=== PATIENT | male | born 1985 | race Caucasian/White ===

== ENCOUNTER → 2020-02-18 16:13 | Outpatient (BNVA) | payer SELFPAY | PROVIDERS: Visit Provider Nurse Practitioner Family | DX: J32.9 Chronic sinusitis, unspecified (principal); B37.0 Candidal stomatitis; I82.B12 Acute embolism and thrombosis of left subclavian vein; Z68.23 Body mass index [BMI] 23.0-23.9, adult; Z71.89 Other specified counseling | CPT/HCPCS: 87071; 87880 ==

== ENCOUNTER → 2020-05-22 12:46 | Outpatient (BNVA) | payer SELFPAY | PROVIDERS: Visit Provider Family Medicine | DX: M25.512 Pain in left shoulder (principal) | CPT/HCPCS: 73030 ==

== ENCOUNTER 2020-09-14 14:06 | Outpatient (CLI) | payer SELFPAY ==
--- NOTE | 2020-09-14 14:17 | USCV_ITS ---
Alverto Evans Age: 35 Gender: M : 1985 Exam Date: 09/14/2020 14:59 Ordering Phys: Beverly Allen MD Technologist: Shari Vizcarra [place] [facility] [place]ication: H/O LT SUBCLAV STENT HISTORY: Upper extremity swelling. Upper extremity pain. PROCEDURES: Venous duplex imaging was performed in only the left upper extremity. The following venous structures were evaluated: internal jugular vein, subclavian vein, axillary vein, and brachial veins. FINDINGS: CHRONIC DVT SEEN IN LT IJV, ALL OTHER VEINS PATENT CONCLUSIONS Chronic DVT Left Internal jugular vein. Left subclavian vein is patent. Remainder of LUE veins are patent Wesley Bauer MD (Electronically Signed) Final Date: 14 September 2020 16:46 S
--- NOTE | 2020-09-14 14:17 | USCV_ITS ---
EvansAlverto Age: 35 Gender: M : 1985 Exam Date: 09/14/2020 14:46 Ordering Phys: Beverly Allen MD Technologist: Shari Vizcarra [place] [facility] [place]ication: PAIN AND SWELLING Risk Factors: Previous Vascular Surgery: Right Brachial BP: / Left Brachial BP: / Right Left Velocity (cm/s) Spectral Plaque Velocity (cm/s) Spectral Plaque Syst/Diast Broadening Syst/Diast Broadening 132.30/23.20 Prox CCA 126.20/ 21.70 106.80/21.40 Mid CCA 98.60 / 23.70 90.60/ 26.50 Distal CCA 65.40 / 20.20 68.00/ 20.60 Prox ICA 62.90 / 19.40 66.00/ 25.00 Mid ICA 61.40 / 23.30 62.50/ 25.70 Distal ICA 69.10 / 31.10 87.10 ECA 69.10 0.51 ICA/CCA 0.55 Antegrade Vertebral Antegrade 28.50/ 6.90 cm/s 57.10/ 20.80 cm/s Tri Subclavian Tri 113.4 112.8 0 0 CONCLUSIONS Right ICA stenosis <50%. Left ICA stenosis <50%. Normal antegrade Doppler flow noted in the right vertebral artery. Normal antegrade Doppler flow noted in the left vertebral artery. Wesley Bauer MD (Electronically Signed) Final Date: 14 September 2020 16:49 S
== END 2020-09-14 14:07 | disposition home or self-care (01) ==
PROVIDERS: PCP Family Medicine; Visit Provider Family Medicine
DX: Z86.718 Personal history of other venous thrombosis and embolism (principal); I82.B12 Acute embolism and thrombosis of left subclavian vein; M79.89 Other specified soft tissue disorders; I82.C22 Chronic embolism and thrombosis of left internal jugular vein; I65.23 Occlusion and stenosis of bilateral carotid arteries
CPT/HCPCS: 93880; 93971

== ENCOUNTER 2020-09-16 15:09 | Emergency (ER) | payer SELFPAY ==
[2020-09-16 15:40] VITALS: BP 134/88; PULSE 84; RESP 16; TEMP 36.6; O2SAT 97; BMI 25.0
[2020-09-16 17:38] VITALS: BP 125/92; PULSE 61; RESP 16; O2SAT 98
--- NOTE | 2020-09-16 18:10 | W.ED.EXTPRO ---
HPI - Extremity Problem General: Chief complaint: Extremity Problem,Nontraumatic Stated complaint: blood clot juggular, left arm *pt suspects Time Seen by Provider: 09/16/20 17:56 History of Present Illness: HPI Narrative: Patient is a 35-year-old male who comes to the ED with left arm pain and muscle cramps. Patient was seen at his PCP for same complaint on September 14 and he was sent to radiology to check for blood clot on left arm and ultrasound found an acute embolism and thrombosis of left subclavian vein. Patient has a history of blood clots in his been taking Eliquis for the past couple years. Primary care doctor sent in for her referral for patient to be seen by vascular surgery in [place]. Patient also has a vascular doctor he sees in [place] that he is communicating with. Currently they are getting something set up to address left arm clot. He comes today because he is having pain and muscle spasms in his left arm. He said he has had this once before when he had a clot and he was put on a muscle relaxer and it helps. Patient says his swelling in his left arm is went down considerably over the past 2 days. Denies any acute shortness of breath, chest pain, hemoptysis or any other symptoms. Associated symptoms: Deny chest pain, fever(s) or rash Review of Systems Const: Denies: fever(s), chills or fatigue Eyes: Denies: change in vision or eye discomfort ENMT: Denies: throat pain, odynophagia, nasal discharge or nasal congestion Card: Denies: chest pain, palpitations, edema, swelling of feet/ankles, dyspnea on exertion or orthopnea Resp: Denies: dyspnea, productive cough or non-productive cough GI: Denies: abdominal pain, nausea, vomiting, diarrhea, constipation or hematochezia : Denies: flank pain, difficulty urinating, dysuria or hematuria Musc: Reports: extremity pain (left arm pain); Denies: neck pain, back pain or extremity swelling Skin/Breast: Denies: rash or new lesions Neuro: Denies: headache(s), numbness in extremities or weakness in extremities PFS ED PFSH: Medical History History of DVT of lower extremity Vascular thoracic outlet syndrome Surgical History History of thoracic surgery Social History Smoking and tobacco status: never smoked Second hand smoke exposure: No Smoking risk assessment/counseling performed?: No Alcohol intake: current Alcohol intake frequency: few times a month Lives independently: Yes Household members: children Marital status: Single Current occupational status: employed 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 History of recent travel: No Current gender identity: Male Physical Exam Const: COMMON NORMALS: no acute distress, patient oriented x3, healthy appearing and alert GENERAL APPEARANCE: cooperative and comfortable HENMT: COMMON NORMALS: normocephalic HEAD & SCALP: normocephalic MOUTH: Normal oral and palatal mucosa present THROAT: posterior oropharynx normal and uvula midline Neck/C-Spine: COMMON NORMALS: supple GENERAL: Yes normal visual inspection Resp: COMMON NORMALS: normal respiratory effort, No retractions, No use of accessory muscles and clear to auscultation bilaterally AUSCULTATION: clear to auscultation bilaterally Cardio: COMMON NORMALS: regular rate, regular rhythm, S1 normal heart sound present, S2 normal heart sound present, No gallops present (Cardio), No clicks present (Cardio), No murmurs present (Cardio) and Peripheral pulses 2+ throughout RATE: regular rate RHYTHM: regular rhythm HEART SOUNDS: S1 normal heart sound present and S2 normal heart sound present PERIPHERAL PULSES: Peripheral pulses 2+ throughout GI: COMMON NORMALS: Normal to inspection, nondistended, normoactive bowel sounds present, Soft to palpation, non-tender and no masses PALPATION: Yes Soft to palpation : COMMON NORMALS: Yes no CVA tenderness BLADDER/KIDNEY EXAM: Yes no CVA tenderness Back/Pelvis: COMMON NORMALS: no CVA tenderness Extremity: NARRATIVE EXTREMITY EXAM: Left arm?radial pulse 2+, cap refills normal. Full range of motion throughout entire left arm and hand. GENERAL: Yes normal exam except as noted Neuro: COMMON NORMALS: patient oriented x3 and moves all extremities SENSORIUM/ORIENTATION: Yes alert Skin: GENERAL SKIN EXAM: dry skin Course Vital Signs: Vital signs: Vital Signs Temperature 97.9 F 09/16/20 15:40 Pulse Rate 63 09/16/20 18:40 Respiratory Rate 16 09/16/20 18:40 Blood Pressure 126/88 09/16/20 18:40 Pulse Oximetry 98 09/16/20 18:40 MDM - Extremity (Nontraumatic) MDM Narrative: Medical decision making narrative: Patient is a 35-year-old male comes to the ED with left arm pain. Patient has a history of DVTs in the left arm. Patient was seen by PCP 2 days ago and an ultrasound was performed on left upper extremity that showed an occlusion of left subclavian vein. PCP then set up an appointment for patient to see vascular surgery up in [facility] in [place]. Patient is currently on Eliquis. Patient comes to the ED today because he is having some muscle spasms in the muscle pain in left arm. Denies chest pain, shortness of breath, hemoptysis or any other symptoms. Patient reports that his swelling in his left arm has gone down significantly over the past couple days. He states in the past when he had a blood clot in his left arm he was put on a muscle relaxer that helped with some of the pain in his left arm. Patient was diagnosed with left arm pain and discharged with a prescription of baclofen. Patient was told to follow-up with his PCP in the vascular surgeon per previously scheduled appointment to address clot in left arm. Return to ED precautions given. Patient understood agree with plan. Discharge Plan Discharge Patient Disposition: Home Clinical Impression: Occlusion of left subclavian vein, Arm pain, left Condition: Stable Prescriptions: New baclofen 10 mg tablet 10 mg PO Q8H Qty: 30 RF: 0 No Action Eliquis 5 mg tablet 5 mg PO BID@0600,2100 RF: 0 Discharge Orders: Discharge ED (Routine); Ordered 09/16/20 Ordered By: Kirit Ribeiro Referrals: Beverly Allen MD [Primary Care Provider] - Discharge Diet: Regular Discharge Activity: Resume usual activity Patient Instructions: Baclofen (By mouth) Activity Restrictions/Additional Instructions: Follow-up with medical provider as directed. Contact your vascular doctor in [place] to set up vascular surgery appointment. Continue taking Eliquis. Take medications as prescribed. Baclofen can cause some drowsiness, so take at night before bed. Use with caution throughout the day due to drowsiness side effects. Return to the ER or your medical provider if condition worsens. Please read and understand discharge instructions. If any questions, please ask. Coding Level of Care Code ED Slaughterer Religious Ritual for Enzo Fwd Exam Comprehensive
[2020-09-16] MEDS: baclofen 10 mg Tablet PO (18:39)
[2020-09-16 18:40] VITALS: BP 126/88; PULSE 63; RESP 16; O2SAT 98
== END 2020-09-16 18:40 | disposition home or self-care (01) ==
PROVIDERS: Emergency Provider Physician Assistant; PCP Family Medicine
DX: I82.B12 Acute embolism and thrombosis of left subclavian vein (principal); Z86.718 Personal history of other venous thrombosis and embolism
CPT/HCPCS: 99282

== ENCOUNTER 2021-12-06 14:13 | Outpatient (CLI) | payer SELFPAY ==
--- NOTE | 2021-12-06 14:24 | USCV_ITS ---
Alverto Evans Age: 36 Gender: M : 1985 Exam Date: 12/06/2021 14:53 Ordering Phys: Beverly Allen MD Technologist: [place] [facility] [place]: hx of multiple surgeries and stents to improve lt arm venous flow HISTORY: lt arm pain and swelling PROCEDURES: Venous duplex imaging was performed in only the left upper extremity. The following venous structures were evaluated: internal jugular vein, subclavian vein, axillary vein, and brachial veins. In addition, the basilic vein and cephalic vein. FINDINGS: THERE IS NON OCCLUDING DVT IN LT SUBCLAVIAN VEIN THE REST OF THE ARM VEINS ARE NORMAL CONCLUSIONS Non occlusive DVT Left subclavian vein Remainder LUE veins are patent Wesley Bauer MD (Electronically Signed) Final Date: 06 Dec 2021 16:23 S
== END 2021-12-06 14:14 | disposition home or self-care (01) ==
LOC: RAD 14:14
PROVIDERS: PCP Family Medicine; Visit Provider Family Medicine
DX: I82.622 Acute embolism and thrombosis of deep veins of left upper extremity (principal)
CPT/HCPCS: 93971

== ENCOUNTER → 2022-11-11 08:16 | Outpatient (BNVA) | payer SELFPAY | PROVIDERS: PCP Family Medicine; Visit Provider Family Medicine | DX: E29.1 Testicular hypofunction (principal) | CPT/HCPCS: 82040; 82670; 83001; 83002; 84146; 84270; 84403 ==

== ENCOUNTER → 2022-12-08 08:09 | Outpatient (BNVA) | payer SELFPAY | PROVIDERS: PCP Family Medicine; Visit Provider Family Medicine | DX: E29.1 Testicular hypofunction (principal); R53.83 Other fatigue; R68.82 Decreased libido | CPT/HCPCS: 82040; 84270; 84403 ==

== ENCOUNTER → 2023-11-23 13:10 | Outpatient (BNVA) | payer SELFPAY | PROVIDERS: PCP Family Medicine; Visit Provider Nurse Practitioner Family | DX: M25.561 Pain in right knee (principal); M25.461 Effusion, right knee | CPT/HCPCS: 73562 ==

== ENCOUNTER 2023-12-20 09:18 | Outpatient (CLI) | payer SELFPAY ==
--- NOTE | 2023-12-20 10:00 | USCV_ITS ---
Alverto Evans Age: 38 Gender: M : 1985 Exam Date: 12/20/2023 10:17 Ordering Phys: Reza Velazquez DO Technologist: FLORENTIN [place] [facility] [place]: KNOWN IJV DVT, EVAL FOR DVT HISTORY: History of known Left IVJ clot PROCEDURES: Venous duplex imaging was performed in only the left upper extremity. The following venous structures were evaluated: internal jugular vein, subclavian vein, axillary vein, and brachial veins. In addition, the radial vein and ulnar vein. Serial compression, augmentation maneuvers, and spectral Doppler flow evaluation were performed. FINDINGS: Chronic DVT seen in Left IJV, All other veins appears patent CONCLUSIONS Chronic DVT LEFT internal jugular vein Remainder of LUE veins are patent. Wesley Bauer MD (Electronically Signed) Final Date: 20 Dec 2023 13:57 S
== END 2023-12-20 09:19 | disposition home or self-care (01) ==
LOC: RAD 09:19
PROVIDERS: PCP Family Medicine; Visit Provider Family Medicine
DX: I82.C22 Chronic embolism and thrombosis of left internal jugular vein (principal)
CPT/HCPCS: 93971

== ENCOUNTER 2023-12-20 09:18 | Outpatient (CLI) | payer SELFPAY ==
--- NOTE | 2023-12-20 11:45 | USCV_ITS ---
Alverto Evans Age: 38 Gender: M : 1985 Exam Date: 12/20/2023 10:09 Ordering Phys: Ileana Lara CARD STRIPPER-Rosa Technologist: FLORENTIN Exam Location: [facility] [place] Indication: RLE PAIN AND SWELLLING HISTORY: Lower extremity swelling. Lower extremity pain. PROCEDURES: Venous duplex imaging was performed in only the right lower extremity. The following venous structures were evaluated: common femoral vein, profunda vein, proximal portion of the greater saphenous vein, superficial femoral vein, and the popliteal vein. In addition, the posterior tibial and peroneal trunk were evaluated. Serial compression, augmentation maneuvers, and spectral Doppler flow evaluation were performed. FINDINGS: No evidence of DVT seen in any vessel visualized at this time. CONCLUSIONS No evidence of right lower extremity DVT. Wesley Bauer MD (Electronically Signed) Final Date: 20 Dec 2023 13:41 S
== END 2023-12-20 09:19 | disposition home or self-care (01) ==
LOC: RAD 09:19
PROVIDERS: PCP Family Medicine; Visit Provider Nurse Practitioner Family
DX: M25.561 Pain in right knee (principal); M25.461 Effusion, right knee; Z86.718 Personal history of other venous thrombosis and embolism; Z79.01 Long term (current) use of anticoagulants
CPT/HCPCS: 93971

== ENCOUNTER 2024-01-03 07:57 | Outpatient (CLI) | payer SELFPAY ==
--- NOTE | 2024-01-03 08:45 | MR_ITS ---
WS: [id number] MRI RIGHT KNEE HISTORY: M25.561 - Pain in right knee COMPARISON: None available. Anterior cruciate ligament: Intact. Posterior cruciate ligament: Intact. Medial collateral ligament: Intact. Posterior lateral corner structures: Intact. Medial menisci: Horizontal tear in the posterior horn extends to the inferior articular surface. Tear also extends to the peripheral third of the surface. There is slight separation at the inferior meni scal capsular junction. Otherwise there is mild fraying of the free edge and blunting of the free edg e. Anterior horn is normal. Lateral meniscus: Intact. Normal signal, size and shape. Extensor mechanism: Distal quadriceps tendon and patellar tendons are intact. Fluid and soft tissue: Small joint effusion. No Samson's cyst. Osseous and articular structures: Patellofemoral compartment: Slight lateral subluxation of the patella. Very mild narrowing of the lat eral patellofemoral joint space. Cartilage is preserved. No marrow edema. Medial compartment: Mild narrowing of the medial compartment. Very mild fissuring and thinning of the cartilage. There is a very small amount of marrow edema involving the tibial plateau adjacent to the MCL. Lateral compartment: Normal. MR/MR knee RT wo con* [id number] IMPRESSION: 1. Horizontal tear posterior horn medial meniscus with blunting of the free ed ge and possible separation of the inferior meniscocapsular junction. 2. Small suprapatellar joint effusion. 3. Mild marrow edema involving the medial tibial plateau.
== END 2024-01-03 07:58 | disposition home or self-care (01) ==
PROVIDERS: PCP Family Medicine; Visit Provider Nurse Practitioner Family
DX: M23.221 Derangement of posterior horn of medial meniscus due to old tear or injury, right knee (principal); Z86.718 Personal history of other venous thrombosis and embolism; Z79.01 Long term (current) use of anticoagulants
CPT/HCPCS: 73721

== ENCOUNTER → 2024-02-08 08:21 | Outpatient (BNVA) | payer BC, MEDICAID, SELFPAY | PROVIDERS: PCP Family Medicine; Referring Provider Nurse Practitioner Family; Visit Provider Student in an Organized Health Care Education/Training Program | DX: S83.206A Unspecified tear of unspecified meniscus, current injury, right knee, initial encounter; X58.XXXA Exposure to other specified factors, initial encounter | CPT/HCPCS: 73560; 73565 ==

== ENCOUNTER 2024-04-15 07:26 | Outpatient (CLI) | payer BC, MEDICAID, SELFPAY ==
--- NOTE | 2024-04-15 08:00 | MR_ITS ---
WS: [id number] MRI CERVICAL SPINE with and without contrast HISTORY: G62.9 - Polyneuropathy, unspecified COMPARISON: None available. Technique: Multiplanar, multisequence noncontrast imaging of the cervical spine. MultiHance 19 mL. Mild straightening of the normal cervical lordosis. Mild disc space narrowing. No marrow edema or fra ctures. Signal within the cervical cord is normal. Visualized posterior fossa is unremarkable. Craniocervical junction, C1 and C2 relationship, odontoid process and soft tissues are normal. C2-C3: Normal. C3-C4: Mild osteophytic ridging and RIGHT foraminal narrowing. C4-C5: Tiny osteophytes. No significant stenosis. C5-C6: Osteophytic ridging is asymmetric to the RIGHT. RIGHT paracentral osteophyte and small disc en croach upon the RIGHT lateral thecal sac. There is slight deformity of the RIGHT lateral thecal sac w ith mild RIGHT foraminal stenosis. C6-C7: Small foraminal osteophytes. Slightly greater on the LEFT. C7-T1: Normal. Postcontrast imaging is negative for mass or abnormal enhancement. MR/MR cervical spine wo/w [id number] IMPRESSION: 1. No high-grade central or foraminal stenosis. 2. Mild degenerative disc disease at C5-6. 3. At C5-6: Asymmetric RIGHT paracentral disc osteophyte complex with slight d eformity of the RIGHT lateral thecal sac. Mild RIGHT foraminal stenosis. 4. C3-4: Very mild RIGHT foraminal stenosis. 5. C6-7: Small foraminal osteophytes. No stenosis. 6. No areas of abnormal enhancement. No discitis/osteomyelitis or mass.
== END 2024-04-15 07:27 | disposition home or self-care (01) ==
LOC: RAD 07:26
PROVIDERS: PCP Family Medicine; Visit Provider Psychiatry & Neurology Neurology
DX: G62.9 Polyneuropathy, unspecified (principal); M48.02 Spinal stenosis, cervical region; M25.78 Osteophyte, vertebrae
CPT/HCPCS: 72156; A9577

== ENCOUNTER → 2024-06-27 08:49 | Outpatient (BNVA) | payer BC, MEDICAID, SELFPAY | PROVIDERS: PCP Family Medicine; Visit Provider Physician Assistant | DX: G56.22 Lesion of ulnar nerve, left upper limb; G56.02 Carpal tunnel syndrome, left upper limb | CPT/HCPCS: 73130 ==

== ENCOUNTER 2024-08-14 05:37 | Day surgery (SDC) | payer BC, MEDICAID, SELFPAY ==
[2024-08-14] VITALS (7 sets, daily range): BP systolic 113–128; BP diastolic 73–91; PULSE 55–84; RESP 12–20; TEMP 36.1–36.5; O2SAT 95–97
[2024-08-14] MEDS: sodium chloride 0.9% 1,000 ML 30 ML IV (06:18)
[2024-08-14] MEDS: acetaminophen 1,000 MG/100 ML PIGGYBACK 400 MG IV (06:19)
[2024-08-14] MEDS: ketorolac 30 mg/mL INJ IVP (06:23)
--- NOTE | 2024-08-14 06:44 | P.ANESASSM_ITS ---
Pre-Anesthetic Assessment Height/Weight: Height 6 ft 2 in Weight 200 lb Temp Pulse Resp BP Pulse Ox O2 Del Method 97 F L 79 16 127/85 97 Room Air 08/14/24 06:04 08/14/24 06:04 08/14/24 06:04 08/14/24 06:04 08/14/24 06:04 08/14/24 06:04 Preop Diagnosis: Carpal tunnel Operation Date: 08/14/24 07:00 Proposed Procedures p Carpal Tunnel Release(Left) - Cliff Ribeiro DO s [place] Canal Release(Left) - Cliff Ribeiro DO Was Beta Garrett taken within 24 hours: N/A Was Clonidine taken within 24 hours: N/A Last intake: Intake Last Liquid Date 08/13/24 Last Liquid Time 20:30 Last Solid Date 08/13/24 Last Solid Time 14:30 Social No alcohol and No tobacco Exam alert, oriented x 3, clear to auscultation bilaterally and regular rate & rhythm Airway Submandibular: within normal limits Cervical ROM: within normal limits Mallampati: Class II Dentition: full Anesthetic Plan ASA status: 2 Anesthesia: General Other: No prior issues with anesthesia NPO since yesterday Patient has a significant history of DVT/PE. Prior thoracic outlet surgery. On chronic Eliquis. Taken last night Denies any cardiac issues METs greater than 4 Plan for general anesthesia with LMA. Due to recent Eliquis use, will forego nerve block at this time Medications/Allergies Home Medications Medication Instructions Recorded Confirmed Last Taken Type Hinged Knee Brace #1 ea 02/08/24 06/27/24 Unknown Rx gabapentin 300 mg capsule 300 mg PO TID neuropathy pain #90 03/06/24 08/14/24 08/13/24 Rx caps acetaminophen 300 mg-codeine 30 mg 1 tab PO BID PRN Pain 08/05/24 08/14/24 08/11/24 History tablet apixaban 5 mg tablet (Eliquis) 5 mg PO BID 08/13/24 08/14/24 08/13/24 History Allergies Allergy/AdvReac Type Severity Reaction Status Date / Time No Known Allergies Allergy Verified 08/05/24 11:06 Current Medications Generic Name Dose Route Start Last Admin Trade Name Freq PRN Reason Stop Dose Admin Sodium Chloride 1,000 mls @ 30 mls/hr 08/14/24 06:00 08/14/24 06:18 Sodium Chloride 0.9% IV 08/15/24 05:59 30 mls/hr .Q24H INDER Administration PFSH Anesthesia Medical History Vascular thoracic outlet syndrome Surgical History History of thoracic surgery Social History Smoking and tobacco/nicotine status: never used tobacco/nicotine Second hand smoke exposure: No Alcohol intake: current Alcohol intake frequency: few times a month Substance/Drug Use: unknown Adopted: No Lives independently: Yes Household members: children Housing: Manufactured/Mobile home Marital status: Single Current occupational status: employed 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
[2024-08-14] MEDS: ceFAZolin 2,000 MG in sodium chloride 0.9% (plus) 50 ML 100 MG IV (07:04)
--- NOTE | 2024-08-14 07:04 | W.PM.OPSFHP ---
Same Day Surgery H&P Indication for Procedure/HPI DATE OF PROCEDURE: August 14, 2024 CHIEF COMPLAINT/INDICATIONFOR SURGICAL PROCEDURE: Left carpal tunnel syndrome, left Guyon canal ulnar nerve entrapment PREOP DIAGNOSIS: Left carpal tunnel syndrome, left Guyon canal ulnar nerve entrapment PLANNED PROCEDURE: Operation Date: 08/14/24 07:00 Proposed Procedures p Carpal Tunnel Release(Left) - Cliff Ribeiro DO s [place] Release(Left) - Cliff Ribeiro DO Medications/Allergies* Home Medications Medication Instructions Recorded Confirmed Type acetaminophen 300 mg-codeine 30 mg 1 tab PO BID PRN Pain 08/05/24 08/14/24 History tablet apixaban 5 mg tablet (Eliquis) 5 mg PO BID 08/13/24 08/14/24 History Allergies/Adverse Reactions Allergy/AdvReac Type Severity Reaction Status Date / Time No Known Allergies Allergy Verified 08/05/24 11:06 Current Medications: Generic Name Dose Route Start Last Admin Trade Name Freq PRN Reason Stop Dose Admin Sodium Chloride 1,000 mls @ 30 mls/hr 08/14/24 06:00 08/14/24 06:18 Sodium Chloride 0.9% IV 08/15/24 05:59 30 mls/hr .Q24H INDER Administration Pertinent History/Comorbid Conditions* Medical History (Updated 06/27/24 @ 09:44 by MARIMAR Moyer) Vascular thoracic outlet syndrome Surgical History (Updated 02/18/20 @ 16:13 by BROOKE Lora) History of thoracic surgery Social History Smoking and tobacco/nicotine status: never used tobacco/nicotine Second hand smoke exposure: No Alcohol intake: current Alcohol intake frequency: few times a month Substance/Drug Use: unknown Adopted: No Lives independently: Yes Household members: children Housing: Manufactured/Mobile home Marital status: Single Current occupational status: employed 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 no thenar atrophy and thenar muscle weakness. Positive tinel's over ulnar nerve at wrist. Full range of motion in fingers and wrist and fingers are warm and well-perfused with normal cap refill under 2 seconds. Radial pulse 2+, no intrinsic muscle weakness noted. Left Elbow exam-negative Tinel's test Recommendations Surgery/Procedure today Other Plans: Plan to proceed to the OR today for left carpal tunnel release and left Guyon canal ulnar nerve release. Patient understands the ins and outs procedure the risk benefits complication alternatives surgery and through shared decision make elects pursue surgical intervention. All questions answered at this time. Coding Level of Care Code Acute Code for [facility] Fwd
[2024-08-14] MEDS: ROPivacaine 0.5% SDV 30 mL 150 MG INJECTION (07:41)
[2024-08-14] MEDS: lidocaine-epi 1% 20 mL INJ INJECTION (07:41)
--- NOTE | 2024-08-14 08:32 | P.BOP_ITS ---
Date of Procedure: 08/14/2024 Surgeon: Clfif Ribeiro DO Research Assoc(s): None Procedure(s) performed: Left carpal tunnel release Left wrist Guyon canal release (ulnar nerve decompression at the wrist) Findings of the procedure(s): Patient was found to have left carpal tunnel syndrome as well as left wrist Guyon canal nerve entrapment underwent procedure as planned without issues or complications placed in a volar splint and taken to PACU stable condition. Estimated blood loss: 2 mL Specimen(s) removed: None Post-operative diagnosis: Left carpal tunnel syndrome, left wrist Guyon canal entrapment
--- NOTE | 2024-08-14 08:34 | P.OP_ITS ---
Operative Report Date of procedure: August 14, 2024 Surgeon: Cliff Ribeiro DO Procedure: Preoperative diagnosis?: Left carpal tunnel syndrome, left wrist Guyon canal entrapment Postop Diagnosis: same Procedure done: Left carpal tunnel release Left wrist Guyon canal release (ulnar nerve decompression at the wrist) Surgeon: Cliff Ribeiro DO Estimated blood loss: 2mL Tourniquet? 36 minutes IV fluids: 800mL Complications: None Findings: See operative report narrative Condition: stable Disposition: same day Brief History: Patient's been seen and worked up in the outpatient setting and findings consistent with preoperative diagnosis.? 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 which has been worked up in the outpatient setting has physical exam findings consistent with this.? Patient's nerve study consistent with this.? Exam findings consistent with preoperative diagnosis.? Patient's failed conservative treatment.? As result through shared decision making agreed to proceed with left carpal tunnel release , left wrist Guyon canal release . We talked about tx options as nonoperative and operative intervention.? Understands risk benefits complication alternatives surgical nonsurgical treatment options.? Understanding? risks pt agrees to proceed with surgical intervention. Understanding these risks pt agrees to proceed with surgery.? Consent obtained. Procedure: Patient seen evaluate in the preoperative holding area.? Consent was reviewed and signed with patient.? Correct extremity marked.? Patient seen evaluated by anesthesia department once cleared for surgery was then taken back to the operative suite placed in supine position all bony prominences well-padded patient properly secured to bed.? Left upper extremity placed onto armboard.? Nonsterile tourniquet applied left upper arm.? Patient then underwent anesthesia per the anesthesia department.? Patient's left upper extremity was then prepped and draped in standard orthopedic fashion.? Final timeout performed.? Patient received appropriate preoperative antibiotics. Esmarch was used exsanguinate the left upper extremity.? Tourniquet was insufflated to 250 mmHg. I started with my release of the ulnar nerve at the wrist.? An extensive laterally based palmar incision that extended proximal past the wrist crease with a Rylie incision was made directly over?Guyon's canal.? At this point in time incision was made between the Pisiform and hamate to follow neurovascular bundle of?Guyon's canal.? sharp scalpel incision was subsequently made through skin and then I switched to Littler dissection scissors.? At this point in time I dissected down over top?guyons canal release the brevis muscle belly along the hypothenar region to obtain access into?Guyon's canal.? Thick band of fascia was noted proximally just proximal to the wrist crease this was released and made sure there was complete decompression of the ulnar nerve proximally just prior to?Guyon's canal subsequently released?guyon?canal and direct visualization with sharp scalpel excision as well as Littler dissection scissors with care utilizi ng my visitor information assistant to protect the neurovascular bundle.? At this point in time I continued to perform release of the fascia/the roof of?Guyon's canal all the way to its most distal extent and the nerve was found to be completely free and untethered.? I then in order to perform release of the deep motor branch I then mobilized my dissection around the ulnar nerve and identified the deep motor branch as it courses towards the under knee fascia connected with the hamate.? I then utilized dissection scissors and under direct visualization completed my release carefully of the fascial bands tethering over top of the deep motor branch.? At this point in time the ulnar nerve was completely decompressed through?Guyon's canal and? ulnar nerve had complete laxity with no areas of entrapment or tethering. No masses were noted within the contents of the?guyons canal.? This completed the ulnar nerve release at the wrist. Next I then subsequently visualized from the ulnar aspect of the carpal tunnel.? Identified the distal extent as well as proximal extent into the antebrachial fascia.? As result approaching the carpal tunnel from the ulnar position just above the hook of the hamate made an incision through thickened Transverse carpal ligament.? It was noted there was significant entrapment of the median nerve.? I then switched to Littler dissection scissors to complete my dissection and release distally with care to protect neurovascular structures distally.? The tendons were healthy within the carpal tunnel.? No masses were noted.? I then carried my dissection proximally utilizing retraction by my visitor information assistant as well as direct visualization with loupe magnification identify the proximal extent of the carpal tunnel and release this to its entirety as well as identified the median nerve and released the tethering of the antebrachial fascia proximally past the wrist crease into the distal aspect of the forearm with no further evidence of median nerve entrapment.? The median nerve overall showed signs of compression and inflammation irritation but overall appeared healthy.?? ?Next the wound bed was thoroughly irrigated.? Tourniquet was deflated.? Hemostasis was satisfactory.? ?The incision was then closed in standard interrupted mattress fashion.? Dressing was Xeroform 4 x 4's ABD Curlex soft roll and an Esvin wrap has a bulky soft dressing and volar splint.? Patient was then awakened from anesthesia and taken to PACU in stable condition. Disposition: Patient taken to PACU in stable condition recovering well.? Patient will receive appropriate discharge instructions as well as pain medication postoperatively.? Leave splint on until follow-up. We will follow-up with me in the office in 2 weeks.? Patient understands agrees with current plan.? All questions answered.? pt understands if any questions or concerns and contact the office for follow-up appointment..
--- NOTE | 2024-08-14 09:17 | PM.PACU ---
PACU note Narrative: Patient is a 39-year-old male who just underwent a left carpal tunnel release and left Guyon canals release. Patient transferred to PACU in stable condition. Pain is well controlled. Splint and dressing on hand is dry and in place. Patient's fingers are warm and well-perfused. Patient can wiggle fingers. normal cap refill under 2 seconds. Patient has normal elbow range of motion. Sensation hand intact. Exam: awake Disposition: discharged
--- NOTE | 2024-08-14 09:25 | ANE.PACU2 ---
Inpatient post-anesthesia follow up: Airway intact: Yes Vital signs: Temperature 97.7 F Pulse Rate 55 Respiratory Rate 16 Blood Pressure 117/73 Pulse Oximetry 96 Oxygen Delivery Me thod Room Air Oxygen Flow Rate Fraction of Inspir ed Oxygen Hydration adequate: Yes Nausea and vomiting: No Pain level: 1 Mental status: Baseline
== END 2024-08-14 09:25 | disposition home or self-care (01) ==
PROVIDERS: PCP Family Medicine; Visit Provider Student in an Organized Health Care Education/Training Program
PROC: (CPT 64721; principal; 2024-08-14 07:00)
PROC: (CPT 64719; 2024-08-14 07:00)
DX: G56.02 Carpal tunnel syndrome, left upper limb (principal); G56.22 Lesion of ulnar nerve, left upper limb; Z86.718 Personal history of other venous thrombosis and embolism; Z86.711 Personal history of pulmonary embolism; Z79.01 Long term (current) use of anticoagulants
CPT/HCPCS: 64719; 64721; J0131; J0690; J1885; J2250; J2371; J2704; J2795; J3010; J7030

== ENCOUNTER → 2024-11-22 10:47 | Outpatient (BNVA) | payer BC, MEDICAID, SELFPAY | PROVIDERS: PCP Family Medicine; Visit Provider Family Medicine | DX: F32.A Depression, unspecified (principal); R53.83 Other fatigue; R20.2 Paresthesia of skin; R51.9 Headache, unspecified; E03.9 Hypothyroidism, unspecified | CPT/HCPCS: 80053; 82607; 83036; 84443 ==